=== PATIENT | male | born 1980 | race Caucasian/White ===

== ENCOUNTER 2017-07-17 19:08 | Emergency (ER) | payer OTHER ==
[~2017-07-17] VITALS: Ht 167.6 cm; Wt 90.9 kg
[2017-07-17 19:10] VITALS: BP 147/89
[2017-07-17] MEDS ORDERED: LORazepam 1MG TABLET PO ONE (20:30)
[2017-07-17] MEDS ORDERED: LORazepam 1MG TABLET ONE (20:58)
== END 2017-07-17 22:10 | disposition home or self-care (01) ==
LOC: ED 21:37
DX: M62.838 Other muscle spasm (principal); G56.20 Lesion of ulnar nerve, unspecified upper limb; F41.1 Generalized anxiety disorder
CPT/HCPCS: 72050; 99284